=== PATIENT | female | born 1965 | race Caucasian/White ===

== ENCOUNTER 2019-05-01 23:51 | Emergency (ER) | payer BC, MEDICARE, OTHER ==
[~2019-05-01] VITALS: Ht 160 cm; Wt 62.6 kg
[2019-05-02] VITALS: BP 104/92
--- NOTE | 2019-05-02 | NUR ---
PT BIBSELF C/O L KNEE PAIN X 1 DAY S/P GLF, PATIENT STATES SHE TRIPPED. DENIES HEAD TRAUMA/-LOC. AOX4. NAD NOTED. RESP EVEN AND UNLABORED. PT ON MONITOR IN BED 10. WILL COTNINUE TO MONITOR.
--- NOTE | 2019-05-02 00:41 | NUR ---
RADIOLOGY AT BEDSIDE FOR XRAY
--- NOTE | 2019-05-02 01:06 | NUR ---
Patient is resting comfortably in bed
[2019-05-02 01:24] LABS: APPEARANCE,URINE Clear (CLEAR); BILIRUBIN,URINE Negative (NEGATIVE); BLOOD, URINE Negative Ery/uL (NEGATIVE); COLOR,URINE Yellow (YELLOW); KETONES,URINE Trace (NEGATIVE); LEUKOCYTE ESTERASE ,URINE Negative (NEGATIVE); NITRITE, URINE Negative (NEGATIVE); PH,URINE 5.5 (5.0-8.0); PROTEIN,URINE Negative (NEGATIVE); UGLUCOSE Negative (NEGATIVE); UROBILINOGEN,URINE 0.2 EU/dL (0.2)
[2019-05-02 01:42] LABS: BACTERIA,URINE None seen /HPF (None Seen); RBC,URINE NONE SEEN /HPF (0-2); SQUAMOUS EPITHELIAL CELL,UR Rare /HPF (None Seen); WBC,URINE NONE SEEN /HPF (0-3)
--- NOTE | 2019-05-02 02:34 | NUR ---
Patient discharged to home in stable condition. Written and verbal after care instructions given. Patient verbalizes understanding of instruction. PT AMBULATORY WITH STEADY GAIT WITH CRUTCHES.
== END 2019-05-02 02:36 | disposition home or self-care (01) ==
LOC: ER 05-02 00:08
DX: S80.02XA Contusion of left knee, initial encounter (principal); M79.7 Fibromyalgia; Z90.89 Acquired absence of other organs; Z90.49 Acquired absence of other specified parts of digestive tract; Z98.890 Other specified postprocedural states; Z88.5 Allergy status to narcotic agent; Z88.8 Allergy status to other drugs, medicaments and biological substances; W01.0XXA Fall on same level from slipping, tripping and stumbling without subsequent striking against object, initial encounter; Y93.89 Activity, other specified; Y92.89 Other specified places as the place of occurrence of the external cause; Y99.8 Other external cause status
CPT/HCPCS: 73564-TC; 81000-TC